=== PATIENT | male | born 1980 | race American Indian/Alaskan Native ===

== ENCOUNTER 2017-10-14 11:07 | Emergency (ER) | payer SELFPAY ==
[2017-10-14 11:16] VITALS: BP 125/67
--- NOTE | 2017-10-14 11:51 | XRay Report ---
Left hand 3 views: History: Left middle finger and ring finger deformity. Injury. Findings: There is no other dislocation noted of the middle phalanx fourth finger in relation to the proximal phalanx. No evidence of fracture. Impression: Dislocation at proximal interphalangeal joint fourth finger.
[2017-10-14] MEDS ORDERED: MARCAINE 0.5% INFILTRATI ONE (13:01)
[2017-10-14] MEDS ORDERED: MARCAINE 0.25% INFILTRATI ONE ×2 (13:03→13:05)
--- NOTE | 2017-10-14 13:32 | Emergency Department Report ---
ED Extremity Problem HPI - General Chief complaint: Extremity Injury, Upper Stated complaint: FINGER INJURY Time Seen by Provider: 10/14/17 13:01 Source: patient Mode of arrival: Ambulatory Limitations: No Limitations - History of Present Illness Initial comments: Is a 37-year-old Male who states that he was moving one of his large dogs this morning and his hand got caught in the leash and he injured his left ring finger. Patient notes a deformity at the PIP joint fourth finger. Patient states the pain is 7 out of 10 in severity. Patient has no other injuries at this time. - Related Data Previous Rx's Medication Instructions Recorded Last Taken Type Acetaminophen/Codeine [Tylenol #3] 1 tab PO QHS PRN #10 tablet 09/26/14 Unknown Rx Sulfamethoxazole/Trimethoprim 1 each PO BID #20 tablet 09/26/14 Unknown Rx [Bactrim Ds] Ibuprofen [Motrin] 800 mg PO Q8H PRN #30 tablet 11/20/14 Unknown Rx traMADol [Ultram] 50 mg PO Q6HR PRN #14 tablet 11/20/14 Unknown Rx Ibuprofen [Motrin] 800 mg PO Q8HR PRN #12 tablet 10/14/17 Unknown Rx Allergies Allergy/AdvReac Type Severity Reaction Status Date / Time No Known Allergies Allergy Verified 11/20/14 00:57 ED Review of Systems ROS: Stated complaint: FINGER INJURY Other details as noted in HPI Comment: All other systems reviewed and negative ED Past Medical Hx - Past Medical History Previous Medical History?: No - Surgical History Past Surgical History?: Yes Additional Surgical History: right leg hardware - Social History Smoking Status: Current Every Day Smoker Substance Use Type: Alcohol - Medications Home Medications: Home Medications Medication Instructions Recorded Confirmed Last Taken Type Acetaminophen/Codeine [Tylenol #3] 1 tab PO QHS PRN #10 tablet 09/26/14 Unknown Rx Sulfamethoxazole/Trimethoprim 1 each PO BID #20 tablet 09/26/14 Unknown Rx [Bactrim Ds] Ibuprofen [Motrin] 800 mg PO Q8H PRN #30 tablet 11/20/14 Unknown Rx traMADol [Ultram] 50 mg PO Q6HR PRN #14 tablet 11/20/14 Unknown Rx Ibuprofen [Motrin] 800 mg PO Q8HR PRN #12 tablet 10/14/17 Unknown Rx ED Physical Exam - General Limitations: No Limitations General appearance: alert, in no apparent distress - Head Head exam: Present: atraumatic, normocephalic - Eye Eye exam: Present: normal appearance - ENT ENT exam: Present: mucous membranes moist - Neck Neck exam: Present: normal inspection - Respiratory Respiratory exam: Present: normal lung sounds bilaterally. Absent: respiratory distress - Cardiovascular Cardiovascular Exam: Present: regular rate, normal rhythm. Absent: systolic murmur, diastolic murmur, rubs, gallop - GI/Abdominal GI/Abdominal exam: Present: soft, normal bowel sounds - Rectal Rectal exam: Present: deferred - Extremities Exam Extremities exam: Present: tenderness (patient has obvious deformity to the left fourth digit at the PIP joint consistent with a dislocation. Patient is neurovascularly intact distal to this injury.). Absent: normal inspection, full ROM - Back Exam Back exam: Present: normal inspection - Neurological Exam Neurological exam: Present: alert, oriented X3 - Psychiatric Psychiatric exam: Present: normal affect, normal mood - Skin Skin exam: Present: warm, dry, intact, normal color. Absent: rash ED Course Vital Signs 10/14/17 11:12 Temperature 98.3 F Pulse Rate 89 Respiratory 18 Rate Blood Pressure 125/67 O2 Sat by Pulse 98 Oximetry - Orthopedic Joint Reduction Joint #1 Consent Obtained: verbal consent Time Out Performed: Yes Side: left Joint Reduction Location: finger Analgesia: digital block Local Anesthetic Used: Bupivicaine 0.25% Amount of Anesthetic Used (mls): 10 Technique Used: direct manipulation Post-Reduction Neuro Exam: intact Post-Reduction Vascular Exam: intact Post Reduction X-Ray Obtained: No Splint Applied: Yes ED Medical Decision Making - Medical Decision Making finger was reduced and will be discharged home. Critical care attestation.: If time is entered above; I have spent that time in minutes in the direct care of this critically ill patient, excluding procedure time. ED Disposition Clinical Impression: Finger dislocation Qualifiers: Encounter type: initial encounter Qualified Code(s): S63.259A - Unspecified dislocation of unspecified finger, initial encounter Disposition: TO HOME OR SELFCARE Is pt being admited?: No Does the pt Need Aspirin: No Condition: Stable Instructions: Finger Dislocation (ED) Prescriptions: Ibuprofen [Motrin] 800 mg PO Q8HR PRN #12 tablet PRN Reason: Pain Forms: Work/School Release Form(ED)
== END 2017-10-14 13:38 | disposition home or self-care (01) ==
LOC: ED 11:07
DX: S63.255A Unspecified dislocation of left ring finger, initial encounter (principal); F17.200 Nicotine dependence, unspecified, uncomplicated; W23.1XXA Caught, crushed, jammed, or pinched between stationary objects, initial encounter; Y93.89 Activity, other specified; Y92.89 Other specified places as the place of occurrence of the external cause; Y99.8 Other external cause status

== ENCOUNTER 2017-11-03 09:45 | Emergency (ER) | payer OTHER ==
[2017-11-03 09:53] VITALS: BP 111/70
[2017-11-03] MEDS ORDERED: MOTRIN PO ONE (10:48)
--- NOTE | 2017-11-03 11:24 | Emergency Department Report ---
ED Upper Extremity Inj HPI - General Chief Complaint: Extremity Injury, Upper Stated Complaint: FINGER PAIN Time Seen by Provider: 11/03/17 10:44 Source: patient Mode of arrival: Ambulatory Limitations: No Limitations - History of Present Illness Initial Comments: This is a 37-year-old male nontoxic, well nourished in appearance, no acute signs of distress presents to the ED with c/o of left 4th finger pain and swelling. Patient stated he was seen in the ED for dislocation of 4th left finger and was put back but patient stated that symptoms of swelling and pain never resolved. Patient denies any new injuries. Patient stated had a splint on but removed it. Patient denies follow-up with a orthopedic doctor. Patient denies any joint redness, joint swelling, fever, chills, nausea, vomiting, chest pain or shortness breath. Patient denies abnormal or decreased gait. Patient denies any allergies or PMH. MD Complaint: Injury to:: left, finger -: week(s) Other Extremity Injury: Fingers: Left Other Injuries: none Severity scale (0 -10): 8 Improves With: immobilization Worsens With: movement of extremity Associated Symptoms: denies other symptoms. denies: weakness, numbness, neck pain, suspects foreign body, nausea/vomiting, heard/felt popping sensat - Related Data Previous Rx's Medication Instructions Recorded Last Taken Type Acetaminophen/Codeine [Tylenol #3] 1 tab PO QHS PRN #10 tablet 09/26/14 Unknown Rx Sulfamethoxazole/Trimethoprim 1 each PO BID #20 tablet 09/26/14 Unknown Rx [Bactrim Ds] Ibuprofen [Motrin] 800 mg PO Q8H PRN #30 tablet 11/20/14 Unknown Rx traMADol [Ultram] 50 mg PO Q6HR PRN #14 tablet 11/20/14 Unknown Rx Ibuprofen [Motrin] 800 mg PO Q8HR PRN #12 tablet 10/14/17 Unknown Rx Ibuprofen [Motrin] 600 mg PO Q8H PRN #30 tablet 11/03/17 Unknown Rx Allergies Allergy/AdvReac Type Severity Reaction Status Date / Time No Known Allergies Allergy Verified 11/03/17 09:50 ED Review of Systems ROS: Stated complaint: FINGER PAIN Other details as noted in HPI Constitutional: denies: chills, fever Eyes: denies: eye pain, eye discharge, vision change ENT: denies: ear pain, throat pain Respiratory: denies: cough, shortness of breath, wheezing Cardiovascular: denies: chest pain, palpitations Endocrine: no symptoms reported Gastrointestinal: denies: abdominal pain, nausea, diarrhea Genitourinary: denies: urgency, dysuria Musculoskeletal: arthralgia. denies: back pain, joint swelling Skin: denies: rash, lesions Neurological: denies: headache, weakness, paresthesias Psychiatric: denies: anxiety, depression Hematological/Lymphatic: denies: easy bleeding, easy bruising ED Past Medical Hx - Past Medical History Previous Medical History?: No - Surgical History Additional Surgical History: right leg hardware - Social History Smoking Status: Current Every Day Smoker Substance Use Type: None - Medications Home Medications: Home Medications Medication Instructions Recorded Confirmed Last Taken Type Acetaminophen/Codeine [Tylenol #3] 1 tab PO QHS PRN #10 tablet 09/26/14 Unknown Rx Sulfamethoxazole/Trimethoprim 1 each PO BID #20 tablet 09/26/14 Unknown Rx [Bactrim Ds] Ibuprofen [Motrin] 800 mg PO Q8H PRN #30 tablet 11/20/14 Unknown Rx traMADol [Ultram] 50 mg PO Q6HR PRN #14 tablet 11/20/14 Unknown Rx Ibuprofen [Motrin] 800 mg PO Q8HR PRN #12 tablet 10/14/17 Unknown Rx Ibuprofen [Motrin] 600 mg PO Q8H PRN #30 tablet 11/03/17 Unknown Rx ED Physical Exam - General Limitations: No Limitations General appearance: alert, in no apparent distress - Head Head exam: Present: atraumatic, normocephalic - Eye Eye exam: Present: normal appearance Pupils: Present: normal accommodation - ENT ENT exam: Present: normal exam, mucous membranes moist - Neck Neck exam: Present: normal inspection, full ROM - Respiratory Respiratory exam: Present: normal lung sounds bilaterally. Absent: respiratory distress, wheezes, rales, rhonchi, stridor, chest wall tenderness, accessory muscle use, decreased breath sounds, prolonged expiratory - Cardiovascular Cardiovascular Exam: Present: regular rate, normal rhythm, normal heart sounds. Absent: irregular rhythm, systolic murmur, diastolic murmur, rubs, gallop - GI/Abdominal GI/Abdominal exam: Present: soft, normal bowel sounds - Rectal Rectal exam: Present: deferred - Extremities Exam Extremities exam: Present: normal inspection, full ROM, tenderness, normal capillary refill. Absent: joint swelling, calf tenderness - Expanded Upper Extremity Exam Left General: Present: normal inspection Shoulder Exam: Present: normal inspection, full ROM Upper Arm exam: Present: normal inspection, full ROM Elbow exam: Present: normal inspection, full ROM Forearm Wrist exam: Present: normal inspection, full ROM. Absent: tenderness, swelling, abrasion, laceration, ecchymosis, deformity, crepidus, dislocation, erythema, tenderness over anatomical snuff box, pain with axial thumb loading Hand Wrist exam: Present: normal inspection, full ROM, tenderness, swelling. Absent: abrasion, laceration, ecchymosis, deformity, crepidus, dislocation, erythema, amputation, nail avulsion, subungual hematoma Neuro motor exam: Present: wrist extension intact, thumb opposition intact, thumb IP flexion intact, thumb adduction intact, fingers 2-5 abduction intact Neurosensory exam: Present: 2-point discrimination, radial nerve intact, ulnar nerve intact, median nerve intact Vascular: Present: vascular compromise, normal capillary refill, radial pulse, brachial pulse, ulnar pulse - Back Exam Back exam: Present: normal inspection, full ROM - Neurological Exam Neurological exam: Present: alert, oriented X3, normal gait - Psychiatric Psychiatric exam: Present: normal affect, normal mood - Skin Skin exam: Present: warm, dry, intact, normal color. Absent: rash ED Course Vital Signs 11/03/17 11/03/17 09:50 11:17 Temperature 98.8 F Pulse Rate 61 Respiratory 18 16 Rate Blood Pressure 111/70 O2 Sat by Pulse 100 Oximetry - Reevaluation(s) Reevaluation #1: 11/03/17 11:35 Patient is speaking in full sentences with no signs of distress noted. ED Medical Decision Making - Medical Decision Making This is a 37-year-old male that presents with left finger strain. Patient is stable and was examined by me. I referred patient to an orthopedic doctor for further evaluation for possible MRI. X-ray has been obtained and dictated by the radiologist Dr. Gomez with no fracture or dislocation with soft tissue swelling. Patient is notified of the x-ray report with noted by the patient. Patient does have normal gait with no tenderness and no joint swelling. No ecchymosis. no joint redness or swelling. Not warm to touch. No signs of cellulites present. Patient was instructed to RICE therapy. Patient received Motrin for pain. Patient is discharged with Motrin. At time of discharge, the patient does not seem toxic or ill in appearance. No acute signs of distress noted. Patient agrees to discharge treatment plan of care. No further questions noted by the patient. Critical care attestation.: If time is entered above; I have spent that time in minutes in the direct care of this critically ill patient, excluding procedure time. ED Disposition Clinical Impression: Strain of left ring finger Qualifiers: Encounter type: initial encounter Qualified Code(s): S66.912A - Strain of unspecified muscle, fascia and tendon at wrist and hand level, left hand, initial encounter Disposition: TO HOME OR SELFCARE Is pt being admited?: No Does the pt Need Aspirin: No Condition: Stable Instructions: RICE Therapy (ED), Ibuprofen (By mouth) Additional Instructions: Follow-up with a orthopedic doctor in 3-5 days or if symptoms worsen and continue return to emergency room as soon as possible. Prescriptions: Ibuprofen [Motrin] 600 mg PO Q8H PRN #30 tablet PRN Reason: Pain Referrals: PRIMARY CAREMD [Primary Care Provider] - 3-5 Days TOSHA BARRERA MD [Staff Physician] - 3-5 Days [facility] [Outside] - 3-5 Days [facility] [Outside] - 3-5 Days Forms: Work/School Release Form(ED)
--- NOTE | 2017-11-04 12:50 | XRay Report ---
Left fourth finger 3 views: History: Finger pain status post dislocation. Findings: Soft tissue swelling at the proximal interphalangeal joint fourth finger. No fracture or dislocation. Impression: No evidence of acute fracture.
== END 2017-11-03 11:47 | disposition home or self-care (01) ==
LOC: ED 09:45
DX: S66.912A Strain of unspecified muscle, fascia and tendon at wrist and hand level, left hand, initial encounter (principal); F17.200 Nicotine dependence, unspecified, uncomplicated; X58.XXXA Exposure to other specified factors, initial encounter; Y93.89 Activity, other specified; Y92.89 Other specified places as the place of occurrence of the external cause; Y99.8 Other external cause status

== ENCOUNTER 2020-06-26 12:26 | Emergency (ER) | payer SELFPAY ==
--- NOTE | 2020-06-26 12:40 | Event Note ---
ED Screening Note ED Screening Note: pt co severe abd pain on urination denies blood endorses purulent d/c denies hx stone he states the pain has been so bad he nearly passed out x 2; the last episode last night This initial assessment/diagnostic orders/clinical plan/treatment(s) is/are subject to change based on patients health status, clinical progression and re- assessment by fellow clinical providers in the ED. Further treatment and workup at subsequent clinical providers discretion. Patient/guardian urged not to elope from the ED as their condition may be serious if not clinically assessed and managed. Initial orders include: std v k stone/obstruction ua/labs
[2020-06-26 12:41] VITALS: BP 113/74
--- NOTE | 2020-06-26 12:53 | Emergency Department Report ---
ED Male HPI - General Chief complaint: Abdominal Pain Stated complaint: PASSED OUT; PAINFUL URINATION Time Seen by Provider: 06/26/20 12:40 Source: patient Mode of arrival: Ambulatory Limitations: No Limitations - History of Present Illness Initial comments: Patient is a 40-year-old male who presents emergency room complaints of dysuria for the last few days. He states he has lower abdominal pain with urination. He states otherwise he does not feel abdominal pain it is only when he is urinating. He states that when he was at work today he felt like he wanted to pass out due to pain from urination. He denies any urinary retention, hematuria, nausea, vomiting, diarrhea, fever, pain or swelling in the testicles. He states that he is sexually active but reports that his was unfaithful and they are now getting and he is concerned that he may have STDs. No past medical history. No allergies current medications. He denies any prior STD history. - Related Data Previous Rx's Medication Instructions Recorded Last Taken Type Acetaminophen/Codeine [Tylenol #3] 1 tab PO QHS PRN #10 tablet 09/26/14 Unknown Rx Sulfamethoxazole/Trimethoprim 1 each PO BID #20 tablet 09/26/14 Unknown Rx [Bactrim Ds] Ibuprofen [Motrin] 800 mg PO Q8H PRN #30 tablet 11/20/14 Unknown Rx traMADoL [Ultram] 50 mg PO Q6HR PRN #14 tablet 11/20/14 Unknown Rx Ibuprofen [Motrin] 800 mg PO Q8HR PRN #12 tablet 10/14/17 Unknown Rx Ibuprofen [Motrin] 600 mg PO Q8H PRN #30 tablet 11/03/17 Unknown Rx Doxycycline Hyclate [Doxycycline 100 mg PO BID 7 Days #14 tab 06/26/20 Unknown Rx Hyclate TAB] Phenazopyridine [Pyridium] 100 mg PO TID #9 tab 06/26/20 Unknown Rx Allergies Allergy/AdvReac Type Severity Reaction Status Date / Time No Known Allergies Allergy Verified 11/03/17 09:50 ED Review of Systems ROS: Stated complaint: PASSED OUT; PAINFUL URINATION Other details as noted in HPI Comment: All other systems reviewed and negative ED Past Medical Hx - Past Medical History Previous Medical History?: No - Surgical History Past Surgical History?: Yes Additional Surgical History: right leg hardware - Social History Smoking Status: Current Every Day Smoker Substance Use Type: None - Medications Home Medications: Home Medications Medication Instructions Recorded Confirmed Last Taken Type Acetaminophen/Codeine [Tylenol #3] 1 tab PO QHS PRN #10 tablet 09/26/14 Unknown Rx Sulfamethoxazole/Trimethoprim 1 each PO BID #20 tablet 09/26/14 Unknown Rx [Bactrim Ds] Ibuprofen [Motrin] 800 mg PO Q8H PRN #30 tablet 11/20/14 Unknown Rx traMADoL [Ultram] 50 mg PO Q6HR PRN #14 tablet 11/20/14 Unknown Rx Ibuprofen [Motrin] 800 mg PO Q8HR PRN #12 tablet 10/14/17 Unknown Rx Ibuprofen [Motrin] 600 mg PO Q8H PRN #30 tablet 11/03/17 Unknown Rx Doxycycline Hyclate [Doxycycline 100 mg PO BID 7 Days #14 tab 06/26/20 Unknown Rx Hyclate TAB] Phenazopyridine [Pyridium] 100 mg PO TID #9 tab 06/26/20 Unknown Rx ED Physical Exam - General Limitations: No Limitations General appearance: alert, in no apparent distress - Head Head exam: Present: atraumatic, normocephalic - Eye Eye exam: Present: normal appearance - ENT ENT exam: Present: mucous membranes moist - Respiratory Respiratory exam: Present: normal lung sounds bilaterally. Absent: respiratory distress, wheezes, rales, rhonchi, stridor, chest wall tenderness, accessory muscle use, decreased breath sounds, prolonged expiratory - Cardiovascular Cardiovascular Exam: Present: regular rate, normal rhythm, normal heart sounds. Absent: systolic murmur, diastolic murmur, rubs, gallop - exam: Present: other (wooden furniture polisher: Altagracia Laguerre RN, no scrotal edema, no testicular ttp bilaterally, no epididymal tenderness or edema, normal testicular lie, normal cremasteric reflex, no obvious lesions, no signs of balantitis) - Neurological Exam Neurological exam: Present: alert, oriented X3 - Psychiatric Psychiatric exam: Present: normal affect, normal mood - Skin Skin exam: Present: warm, dry, intact ED Course Vital Signs 06/26/20 12:40 Temperature 99.1 F Pulse Rate 92 H Respiratory 18 Rate Blood Pressure 113/74 [Right] O2 Sat by Pulse 98 Oximetry ED Medical Decision Making - Lab Data Lab Results 01/19/21 Range/Units 14:20 Urine Color Straw (Yellow) Urine Turbidity Slightly-cloudy (Clear) Urine pH 6.0 (5.0-7.0) Ur Specific [place] 1.002 L (1.003-1.030) Urine Protein <15 mg/dl (Negative) mg/dL Urine Glucose (UA) Neg (Negative) mg/dL Urine Ketones Neg (Negative) mg/dL Urine Blood Sm (Negative) Urine Nitrite Neg (Negative) Urine Bilirubin Neg (Negative) Urine Urobilinogen < 2.0 (<2.0) mg/dL Ur Leukocyte Esterase Lg (Negative) Urine WBC (Auto) 95.0 H (0.0-6.0) /HPF Urine RBC (Auto) 1.0 (0.0-6.0) /HPF Urine Bacteria (Auto) 1+ (Negative) /HPF - Medical Decision Making Patient is a 40-year-old male who presents emergency room complaints of dysuria for the last few days. He states he has lower abdominal pain with urination. He states otherwise he does not feel abdominal pain it is only when he is urinating. He states that when he was at work today he felt like he wanted to pass out due to pain from urination. He denies any urinary retention, hematuria, nausea, vomiting, diarrhea, fever, pain or swelling in the testicles. He states that he is sexually active but reports that his was unfaithful and they are now getting and he is concerned that he may have STDs. No past medical history. No allergies current medications. He denies any prior STD history. Vitals are normal. On exam: wooden furniture polisher: Altagracia Laguerre RN, no scrotal edema, no testicular ttp bilaterally, no epididymal tenderness or edema, normal testicular lie, normal cremasteric reflex, no obvious lesions, no signs of balantitis, no abdominal tenderness to palpation, no guarding, no rebound, no rigidity, normal bowel sounds, no peritoneal signs, no signs of epididymitis, orchitis, testicular torsion. UA shows evidence of many white blood cells, this appears most likely consistent with an STD. Patient given 1 g ceftriaxone while in the emergency department. Patient given prescription for doxycycline and Pyridium. Discussed the importance of outpatient follow-up with patient for urine retested and for STD panel. Advised patient Please take medication as prescribed. Medication may turn your urine orange. This is normal. Please follow-up with primary care doctor. Please follow-up with the clinic for full STD panel. Please have any partner tested and treated as well. Avoid sexual intercourse. Return to emergency room for new or worsening symptoms. Critical care attestation.: If time is entered above; I have spent that time in minutes in the direct care of this critically ill patient, excluding procedure time. ED Disposition Clinical Impression: Concern about STD in male without diagnosis UTI (urinary tract infection) Qualifiers: Urinary tract infection type: acute cystitis Hematuria presence: without hematuria Qualified Code(s): N30.00 - Acute cystitis without hematuria Disposition: TO HOME OR SELFCARE Is pt being admited?: No Does the pt Need Aspirin: No Condition: Stable Additional Instructions: Please take medication as prescribed. Medication may turn your urine orange. This is normal. Please follow-up with primary care doctor. Please follow-up with the clinic for full STD panel. Please have any partner tested and treated as well. Avoid sexual intercourse. Return to emergency room for new or worsening symptoms. walk in clinic: [facility] Address: [address] [place] [id number] Prescriptions: Doxycycline Hyclate [Doxycycline Hyclate TAB] 100 mg PO BID 7 Days #14 tab Phenazopyridine [Pyridium] 100 mg PO TID #9 tab Referrals: PRIMARY CARE, [Primary Care Provider] - 2-3 Days [facility] [Provider Group] - 2-3 Days [facility] [Outside] - 2-3 Days Time of Disposition: 15:25 Print Language: TURKISH
[2020-06-26 15:22] LABS: Bacteria,Urine 1+ /HPF (Negative); Bilirubin,Urine NEG (Negative); Blood,Urine SM (Negative); Color,Urine Straw (Yellow); Protein,Urine <15 mg/dL mg/dL (Negative); Urobilinogen,Urine < 2.0 mg/dL (<2.0)
[2020-06-26] MEDS ORDERED: LIDOCAINE-MPF (1%) 10 MG/1 ML VIAL 5 ML INFILTRATI ONE (15:24)
== END 2020-06-26 16:00 | disposition home or self-care (01) ==
LOC: ED 12:26
DX: N39.0 Urinary tract infection, site not specified (principal); F17.200 Nicotine dependence, unspecified, uncomplicated; Z79.899 Other long term (current) drug therapy; Z98.890 Other specified postprocedural states; Z71.1 Person with feared health complaint in whom no diagnosis is made
CPT/HCPCS: 81001; 87086; 96372; 99283; J0696